=== PATIENT | male | born 1980 | race Two or more races ===

== ENCOUNTER → 2017-06-09 10:03 | Outpatient (CLI) | payer OTHER ==
[~2017-06-09 10:03] MED LIST: DECADRON P4 MG/ML-1M IH; DICY10CA PO; ETODOLAC400 MG PO; FLEXERIL10 MG PO; LEVAQUIN500 MG; NABUMETONE750 MG PO; NAPROXEN SODIU550 MG PO; NORFLEX 30MG30 MG/ML IM; NORFLEX100MG PO; ORPH100T PO; PRILOSEC OTC20 MG PO; TAMS0.4C; TESSALON PERLE100 MG PO; TORADOL30 MG IM; TORADOL60 MG IM; TRICOR145 MG PO; ULTRAM50 MG PO; VOLTAREM 50 MG PO; ZANTAC300 MG PO; ZYRTEC10 MG PO
== END | disposition home or self-care (01) ==
LOC: LAB 10:03
DX: K76.89 Other specified diseases of liver (principal)

== ENCOUNTER 2017-07-03 06:09 | Outpatient (CLI) | payer OTHER | END 2017-07-03 06:27 | disposition home or self-care (01) | LOC: LAB 06:09 | DX: K76.89 Other specified diseases of liver (principal) ==

== ENCOUNTER → 2017-08-14 | Outpatient (CLI) | payer OTHER ==
[~2017-08-14] VITALS: Ht 152.4 cm; Wt 103.4 kg
== END | disposition home or self-care (01) ==
LOC: PPHC 08:12
DX: B34.9 Viral infection, unspecified (principal)

== ENCOUNTER 2017-08-19 08:07 | Outpatient (CLI) | payer OTHER | END 2017-08-19 08:27 | disposition home or self-care (01) | LOC: LAB 08:07 | DX: R50.9 Fever, unspecified (principal) ==

== ENCOUNTER → 2017-08-19 | Outpatient (CLI) | payer OTHER | END | disposition home or self-care (01) | LOC: PPHC 10:35 | DX: J06.9 Acute upper respiratory infection, unspecified (principal) ==

== ENCOUNTER 2017-10-17 07:10 | Outpatient (CLI) | payer OTHER | END 2017-10-17 13:06 | disposition home or self-care (01) | LOC: TOM 07:10 → LAB 07:10 → TOM 13:06 | DX: R10.13 Epigastric pain (principal); R73.9 Hyperglycemia, unspecified; R42 Dizziness and giddiness; R00.2 Palpitations; E78.2 Mixed hyperlipidemia ==

== ENCOUNTER 2017-10-29 06:26 | Outpatient (CLI) | payer OTHER | END 2017-10-29 06:43 | disposition home or self-care (01) | LOC: LAB 06:26 | DX: R73.9 Hyperglycemia, unspecified (principal) ==

== ENCOUNTER 2017-12-04 06:13 | Outpatient (CLI) | payer OTHER | END 2017-12-04 06:22 | disposition home or self-care (01) | LOC: LAB 06:13 | DX: N40.1 Benign prostatic hyperplasia with lower urinary tract symptoms (principal) ==

== ENCOUNTER 2018-01-15 06:10 | Outpatient (CLI) | payer OTHER | END 2018-01-15 06:29 | disposition home or self-care (01) | LOC: LAB 06:10 | DX: R03.0 Elevated blood-pressure reading, without diagnosis of hypertension (principal); E11.9 Type 2 diabetes mellitus without complications; E78.2 Mixed hyperlipidemia; M54.89 Other dorsalgia; M62.838 Other muscle spasm ==

== ENCOUNTER 2018-08-09 11:58 | Outpatient (CLI) | payer OTHER | END 2018-08-09 12:02 | disposition home or self-care (01) | LOC: LAB 11:58 | DX: J11.1 Influenza due to unidentified influenza virus with other respiratory manifestations (principal); J20.0 Acute bronchitis due to Mycoplasma pneumoniae; N40.0 Benign prostatic hyperplasia without lower urinary tract symptoms ==

== ENCOUNTER 2018-09-13 07:10 | Outpatient (CLI) | payer OTHER | END 2018-09-13 07:27 | disposition home or self-care (01) | LOC: SONOGRAMA 07:10 → MAMO-SONO 07:15 → SONOGRAMA 07:27 | DX: N20.0 Calculus of kidney (principal) ==

== ENCOUNTER → 2019-06-10 | Outpatient (CLI) | payer OTHER | END | disposition home or self-care (01) | LOC: RAD 12:30 | DX: M54.89 Other dorsalgia (principal) ==